=== PATIENT | male | born 1975 | race Caucasian/White ===

== ENCOUNTER 2022-10-28 10:57 | Inpatient (IN) | payer BC ==
[~2022-10-28] VITALS: Ht 187.9 cm; Wt 106.0 kg
[2022-10-28] MEDS ORDERED: CALCIUM CARBONATE 500 MG CHEW TABLET PO PRN (11:30)
[2022-10-28] MEDS ORDERED: MELATONIN 3 MG TABLET PO PRN (11:30)
[2022-10-28] MEDS ORDERED: morphine INJ 4 MG/ML 1 ML (VIAL/SYRINGE) IV PRN (11:30)
[2022-10-28] MEDS ORDERED: ACETAMINOPHEN 325 MG TABLET PO PRN (11:30)
[2022-10-28] MEDS ORDERED: ANTACID SUSPENSION 30 ML UDC PO PRN (11:30)
[2022-10-28] MEDS ORDERED: MILK OF MAGNESIA 400 MG/5 ML 30 ML UDC PO PRN (11:30)
[2022-10-28] MEDS ORDERED: NS IV 500 ML 500 ML IV PRN (11:30)
[2022-10-28] MEDS ORDERED: oxyCODONE IMMEDIATE RELEASE 5 MG TABLET PO PRN (11:30)
[2022-10-28] MEDS ORDERED: ONDANSETRON 4 MG ORAL DISSOLVE TABLET PO PRN (11:30)
[2022-10-28] MEDS ORDERED: LACTULOSE SYRUP 10GM/15ML 30ML UDC PO PRN (11:30)
[2022-10-28] MEDS ORDERED: ONDANSETRON INJECTION 4 MG/2 ML (SDV) IV PRN (11:30)
[2022-10-28] MEDS ORDERED: diphenhydrAMINE 25 MG TABLET PO PRN (11:30)
[2022-10-28] MEDS ORDERED: BISACODYL 10 MG SUPPOSITORY PR PRN (11:30)
[2022-10-28] MEDS ORDERED: diphenhydrAMINE INJ 50 MG/ML VIAL IVP PRN (11:30)
[2022-10-28] MEDS ORDERED: ALBU18HF2 INH (13:49)
[2022-10-28] MEDS ORDERED: LORA10TA7 PO (13:49)
--- NOTE | 2022-10-28 14:49 | Progress Note ---
SUSANA RIDLEY 10/28/22 1448: Subjective Date Seen by a Provider: Oct 28, 2022 Subjective/Events-last exam Miguel Ángel Whiting is a 47 year old male who came into the hospital today to get lab work and imaging done. He has recently begun having shortness of breath and friday went to his outpatient provider and was prescribed an albuterol inhaler. Over the weekend he continued to be short of breath so he had labs, an EKG, and xray ordered. He came into today to do these when he was found to have afib with RVR. He denies symptoms of chest pain or palpitations and denies ongoing shortness of breath. He denies personal history of heart disease, stroke, drug use, hypertension, and diabetes. He admits to snoring when he sleeps. He does admit to a family history of heart disease in several family members. Review of Systems Pulmonary: No Dyspnea Cardiovascular: No: Chest Pain, Palpitations, Edema Negative except as mentioned in HPI. Objective Exam Last Set of Vital Signs Vital Signs Date Time Temp Pulse Resp B/P (MAP) Pulse Ox O2 Delivery O2 Flow Rate FiO2 10/28/22 14:30 82 29 120/96 (104) 93 Room Air Capillary Refill : General: Alert, Cooperative, No Acute Distress HEENT: Atraumatic Lungs: Clear to Auscultation, Normal Air Movement Heart: Other (tachycardic, irregularly irregular rhythm) Extremities: No Edema, Normal Pulses Neuro: Normal Speech Psych/Mental Status: Mental Status NL, Mood NL Assessment/Plan Assessment/Plan Assess & Plan/Chief Complaint Assessment and Plan -Atrial fibrillation with RVR > Order CMP for electrolyte levels (K, Mg) > Transthoracic echo to assess LA size, thrombus formation, LV function, valvular dysfunction > Continue rate control with diltiazem > If rate control with CCB is not sufficient consider cardioversion > Continue anticoagulation with apixaban > Repeat EKG > [id number] score of 0 LEIDY CANNON DO 10/29/22 0455: Subjective Time Seen by a Provider: 18:00 Supervisory-Addendum Brief Verification & Attestation Participated in pt care: history, MDM, physical Personally performed: exam, history, MDM, supervision of care Care discussed with: Medical Student Procedures: n/a Results interpretation: Verified all documentation Verification and Attestation of Medical Student E/M Service A medical student performed and documented this service in my presence. I reviewed and verified all information documented by the medical student and made modifications to such information, when appropriate. I personally performed the physical exam and medical decision making. Leidy Cannon, Oct 29, 2022,04:54 SUSANA RIDLEY Oct 28, 2022 14:48 LEIDY CANNON DO Oct 29, 2022 04:55
[2022-10-28] MEDS: NS IV 1000 ML 1,000 ML IV SCH (15:30)
[2022-10-28] MEDS: dilTIAZem DRIP PRE-MIX 125 ML IV SCH (15:30)
--- NOTE | 2022-10-28 17:27 | Consultation-Cardiology ---
HPI-Cardiology Cardiology Consultation Date of Consultation 10/28/22 Date of Admission Time Seen by Provider: 17:23 Indication: Atrial fibrillation HPI 47-year-old gentleman with no significant past medical history starting to have increasing dyspnea for the past week, seen by Dr. Norton, started the work-up, he was seen in the emergency room with atrial fibrillation rapid ventricular response, transferred over with persistent tachycardia. On my evaluation he was feeling slightly better, still anxious. Denied any chest pain. No syncope or near syncopal episodes. No claudications. Home Medications & Allergies Allergies: Coded Allergies: No Known Drug Allergies (Unverified , 02/16/15) Home Medication List Reviewed: Yes Did not take any medication at home KPL-Vbgnys-Pnhwtt Hx Patient Social History Marital Status: Employed/Student: employed Smoking Status: Never a Smoker Alcohol Use?: Yes Past Medical History Discussed below Family Medical History Significant Family History: No Pertinent Family Hx Review of Systems-General Review of Systems Constitutional: no symptoms reported, see HPI EENTM: see HPI, no symptoms reported Respiratory: see HPI; No cough; dyspnea on exertion; No hemoptysis, No orthopnea, No phlegm, No short of breath, No stridor, No wheezing, No other Cardiovascular: see HPI Gastrointestinal: no symptoms reported, see HPI Genitourinary: no symptoms reported, see HPI Musculoskeletal: no symptoms reported, see HPI Skin: no symptoms reported, see HPI Psychiatric/Neurological: No Symptoms Reported, See HPI Physical Exam Physical Exam Vital Signs Vital Signs - First Documented 10/28/22 10/28/22 12:45 13:45 Pulse 104 Resp 29 B/P (MAP) 106/90 (95) Pulse Ox 99 O2 Delivery Room Air Capillary Refill : Height, Weight, BMI Height: '" Weight: lbs. oz. kg; 30.13 BMI Method: General Appearance: No Apparent Distress, WD/WN Eyes: Bilateral Eye Normal Inspection, Bilateral Eye PERRL, Bilateral Eye EOMI HEENT: PERRL/EOMI, TMs Normal, Normal ENT Inspection, Pharynx Normal, Moist Mucous Membranes Neck: Full Range of Motion, Normal Inspection, Non Tender, Supple, Carotid Bruit Respiratory: Chest Non Tender, Normal Breath Sounds, No Accessory Muscle Use, No Respiratory Distress Cardiovascular: No Edema, No Gallop, No JVD, No Murmur, Normal Peripheral Pulses, Systolic Murmur, Irregularly Irregular, Tachycardia Gastrointestinal: Normal Bowel Sounds, No Organomegaly, No Pulsatile Mass, Non Tender, Soft Back: Normal Inspection, No CVA Tenderness, No Vertebral Tenderness Extremity: Normal Capillary Refill, Normal Inspection, Normal Range of Motion, Non Tender, No Calf Tenderness, No Pedal Edema Neurologic/Psychiatric: Alert, Oriented x3, No Motor/Sensory Deficits, Normal Mood/Affect Skin: Normal Color, Warm/Dry Lymphatic: No Adenopathy A/P-Cardiology Admission Diagnosis Atrial fibrillation Tachycardia Congestive heart failure acute left ventricular systolic dysfunction Hypertension Assessment/Plan Atrial fibrillation with rapid ventricular response Unknown etiology Started on Cardizem drip, still tachycardic I will add digoxin and metoprolol Currently on Lovenox Planning for WILNER and electrical cardioversion if he did not convert on his own. Congestive heart failure, acute left ventricular systolic dysfunction 2D echo was done on October 28, 2022 with dilated left ventricle diffuse hypokinesia with ejection fraction 40 to 45%, biatrial enlargement, pulmonary hypertension with PA pressure 45 to 50 mmHg Underlying etiology is unknown probably due to atrial fibrillation Adding beta-blockers and continue on Cardizem for now and monitor I am planning to add losartan or Entresto depends on his blood pressure in addition to Jardiance once clinically stable CHADVASC score 2, starting Eliquis 5 mg twice daily after the cardioversion Hypertension, monitor blood pressure while on current medication Mild to moderate consumption of alcohol, educated on avoiding alcohol Pulmonary hypertension, PA pressure 45 to 50 mmHg, unknown etiology Questionable underlying sleep apnea DARCIE ANGELO MD Oct 28, 2022 17:27
[2022-10-28] MEDS ORDERED: meTOprolol INJECTION 5 MG/5 ML VIAL IV NR (17:30)
[2022-10-28] MEDS ORDERED: DIGOXIN INJECTION 0.25 MG/ML 2 ML AMPULE IV NR ×2 (17:30→23:00)
[2022-10-28] MEDS: DOCUSATE SODIUM 100 MG CAPSULE PO SCH (19:26)
[2022-10-28] MEDS: SENNOSIDES 8.6 MG TABLET PO SCH (19:26)
[2022-10-28] MEDS: APIXABAN 5 MG TABLET PO SCH (20:56)
[2022-10-28] MEDS: meTOprolol TARTRATE (IR) 25 MG TABLET PO SCH (20:56)
[2022-10-28] MEDS ORDERED: ALPRAZolam 0.5 MG TABLET PO PRN (21:15)
[2022-10-28] MEDS ORDERED: RT-ALBUTEROL SULF 2.5 MG/3 ML PRE-MIX VIAL INH PRN (21:15)
[2022-10-29] MEDS: dilTIAZem DRIP PRE-MIX 125 ML IV SCH (00:47)
[2022-10-29 04:31] LABS: BASOPHILS % (AUTO) 1 % (0-10); EOSINOPHILS # (AUTO) 0.1 10^3/uL (0.0-0.3); EOSINOPHILS % (AUTO) 1 % (0-10); HEMATOCRIT 41 % (40-54); HEMOGLOBIN 13.2 g/dL (13.3-17.7); LYMPHOCYTES % (AUTO) 28 % (12-44); MEAN CORPUSCULAR HEMOGLOBIN 30 pg (25-34); MEAN CORPUSCULAR HGB CONC 33 g/dL (32-36); MEAN CORPUSCULAR VOLUME 91 fL (80-99); MEAN PLATELET VOLUME 10.3 fL (9.0-12.2); MONOCYTES # (AUTO) 0.7 10^3/uL (0.0-1.0); MONOCYTES % (AUTO) 10 % (0-12); NEUTROPHILS # (AUTO) 4.5 10^3/uL (1.8-7.8); NEUTROPHILS % (AUTO) 61 % (42-75); PLATELET COUNT 196 10^3/uL (130-400); WHITE BLOOD COUNT 7.4 10^3/uL (4.3-11.0)
[2022-10-29 04:42] LABS: ALBUMIN 3.6 GM/DL (3.2-4.5); POTASSIUM 4.2 MMOL/L (3.6-5.0)
[2022-10-29 04:43] LABS: CALCIUM 8.4 MG/DL (8.5-10.1)
[2022-10-29 04:44] LABS: TOTAL PROTEIN 5.8 GM/DL (6.4-8.2)
[2022-10-29 04:46] LABS: BILIRUBIN,TOTAL 0.7 MG/DL (0.1-1.0)
[2022-10-29 04:47] LABS: PHOSPHORUS 3.6 MG/DL (2.3-4.7)
[2022-10-29 04:48] LABS: CREATININE SERUM 0.95 MG/DL (0.60-1.30)
[2022-10-29 04:51] LABS: MAGNESIUM 1.9 MG/DL (1.6-2.4)
--- NOTE | 2022-10-29 04:59 | History & Physical ---
History of Present Illness HPI/Chief Complaint Late entry of H&P: student mistakenly created progress note instead of H&P. Patient was seen 10/28/22 CC: New on set AF RVR HPI: This is a 47yoWM clinic patient of Dr Norton who has essentially no PMH and does not smoke or drink etoh who presented from [facility] for higher level of care due to new onset AF RVR. Cardizem drip initiated and OAC and Dr Love plans to perform HAMLET and cardiovert tomorrow. No sleep study performed in the past and I recommended that after DC. 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 Source: patient, family, RN/MD, old records Exam Limitations: no limitations Date Seen 10/29/22 Time Seen by a Provider: 19:00 Attending Physician Freedom Luciano MD PCP Admitting Physician: Leidy Cannon DO Attending Physician: Leidy Cannon DO Referring Physician Date of Admission Oct 28, 2022 at 12:40 Home Medications & Allergies Home Medications Reviewed patient Home Medication Reconciliation performed by pharmacy medication reconciliations unit technician and/or nursing. Patients Allergies have been reviewed. Allergies Allergies Coded Allergies No Known Drug Allergies (Fzwjehijjc29/10/15) Past Vdvvyyo-Uscggm-Qczxgn Hx Past Med/Social Hx: Reviewed Nursing Past Med/Soc Hx, Reviewed and Corrections made Patient Social History Marrital Status: Employed/Student: employed Smoking Status: Never a Smoker Past Medical History Cardiac: Atrial Fibrillation (10/28/22) Family History No Pertinent Family Hx Review of Systems Constitutional: see HPI Respiratory: dyspnea on exertion, short of breath Cardiovascular: palpitations Physical Exam Physical Exam Vital Signs Vital Signs - First Documented 10/28/22 10/28/22 10/28/22 10/28/22 12:45 13:45 19:25 21:54 Temp 36.6 Pulse 104 Resp 29 B/P (MAP) 106/90 (95) Pulse Ox 99 O2 Delivery Room Air FiO2 21 Capillary Refill : Less Than 3 Seconds Height, Weight, BMI Height: '" Weight: lbs. oz. kg; 30.13 BMI Method: General Appearance: No Apparent Distress, WD/WN Eyes: Bilateral Eye Normal Inspection, Bilateral Eye PERRL, Bilateral Eye EOMI HEENT: PERRL/EOMI, TMs Normal, Normal ENT Inspection, Pharynx Normal, Moist Mucous Membranes Neck: Full Range of Motion, Normal Inspection, Non Tender, Supple, Carotid B ruit Respiratory: Chest Non Tender, Normal Breath Sounds, No Accessory Muscle Use, No Respiratory Distress Cardiovascular: No Edema, No Gallop, No JVD, No Murmur, Normal Peripheral Pulses, Systolic Murmur, Irregularly Irregular, Tachycardia Gastrointestinal: Normal Bowel Sounds, No Organomegaly, No Pulsatile Mass, Non Tender, Soft Back: Normal Inspection, No CVA Tenderness, No Vertebral Tenderness Extremity: Normal Capillary Refill, Normal Inspection, Normal Range of Motion, Non Tender, No Calf Tenderness, No Pedal Edema Neurologic/Psychiatric: Alert, Oriented x3, No Motor/Sensory Deficits, Normal Mood/Affect Skin: Normal Color, Warm/Dry Lymphatic: No Adenopathy Results Results/Procedures Labs Laboratory Tests 10/29/22 03:33 Patient resulted labs reviewed. Assessment/Plan Admission Diagnosis Assessment: New onset AF RVR Suspected sleep study Plan: Cardizem drip Cardioversion after HAMLET tomorrow OAC Admission Status: Inpatient Order (span 2 midnights) Reason for Inpatient Admission: hamlet af rvr LEIDY CANNON DO Oct 29, 2022 04:59
[2022-10-29] MEDS: NS IV 1000 ML 1,000 ML IV SCH ×2 (05:12→20:42)
[2022-10-29] MEDS: POTASSIUM CHLORIDE 20 MEQ TABLET PO SCH (05:13)
[2022-10-29] MEDS: POTASSIUM CL 10MEQ/50ML IVPB 50 ML IV SCH (05:13)
[2022-10-29] MEDS: MAGNESIUM 1 GM/100 ML IVPB 100 ML IV SCH ×3 (05:14→05:37)
[2022-10-29] MEDS ORDERED: LIDOCAINE 2% VISCOUS 15 ML UDC ONE (07:17)
[2022-10-29] MEDS ORDERED: MIDAZOLAM INJ 2 MG/2 ML VIAL ONE (07:41)
--- NOTE | 2022-10-29 07:54 | Cardiology Progress Note ---
Subjective Date Seen by Provider: Oct 29, 2022 Time Seen by Provider: 07:53 Subjective/Events-last exam Patient was seen at bedside sitting comfortably. No new complain Review of Systems General: No Chills, No Night Sweats, No Fatigue, No Malaise, No Appetite, No Other HEENT: No Head Aches, No Visual Changes, No Eye Pain, No Ear Pain, No Dysphasia, No Sinus Congestion, No Post Nasal Drip, No Sore Throat, No Other Pulmonary: No Dyspnea, No Cough, No Pleuritic Chest Pain, No Other Cardiovascular: No: Chest Pain, Palpitations, Orthopnea, Paroxysmal Noc. Dyspnea, Edema, Lt Headedness, Other Objective-Cardiology Exam Last Set of Vital Signs Vital Signs 10/28/22 10/28/22 10/29/22 10/29/22 10/29/22 21:54 22:45 05:00 06:00 07:12 Temp 36.5 Pulse 75 Resp 20 B/P (MAP) 105/69 (81) Pulse Ox 90 O2 Delivery Room Air FiO2 21 I&O Intake and Output 10/29/22 00:00 Intake Total 1600 ml Output Total 850 ml Balance 750 ml Intake Oral 1600 ml Output Urine Total 850 ml Daily Weight Change No General: Alert, Cooperative, No Acute Distress HEENT: Atraumatic Neck: Supple, No JVD Lungs: Clear to Auscultation, Normal Air Movement Heart: Normal S1, Normal S2, Other (tachycardic, irregularly irregular rhythm) Abdomen: Normal Bowel Sounds Extremities: No Clubbing, No Cyanosis, No Edema, Normal Pulses Skin: No Rashes, No Breakdown Neuro: Normal Speech Psych/Mental Status: Mental Status NL, Mood NL Results Lab Laboratory Tests 10/29/22 03:33 A/P-Cardiology Admission Diagnosis Atrial fibrillation Tachycardia Congestive heart failure acute left ventricular systolic dysfunction Hypertension Assessment/Plan Atrial fibrillation with rapid ventricular response Unknown etiology Currently on Cardizem drip, had multiple episodes of bradycardia but did not convert overnight Plan to proceed with WILNER and electrical cardioversion Congestive heart failure, acute left ventricular systolic dysfunction 2D echo was done on October 28, 2022 with dilated left ventricle diffuse hypokinesia with ejection fraction 40 to 45%, biatrial enlargement, pulmonary hypertension with PA pressure 45 to 50 mmHg Underlying etiology is unknown probably due to atrial fibrillation Adding beta-blockers and continue on Cardizem for now and monitor I am planning to add losartan or Entresto depends on his blood pressure in addition to Jardiance once clinically stable CHADVASC score 2, starting Eliquis 5 mg twice daily after the cardioversion Hypertension, monitor blood pressure while on current medication Mild to moderate consumption of alcohol, educated on avoiding alcohol Pulmonary hypertension, PA pressure 45 to 50 mmHg, unknown etiology Questionable underlying sleep apnea DARCIE ANGELO MD Oct 29, 2022 07:54
--- NOTE | 2022-10-29 07:55 | Cardiac Procedure Note-CS/ASA ---
Pre-Procedure Note Pre-Op Procedure Note Date of Available H&P: Oct 29, 2022 Date H&P Reviewed: Oct 29, 2022 Time H&P Reviewed: 07:54 History & Physical: H&P Reviewed, Patient Examed, No changes noted Pre-Operative Diagnosis: Atrial fibrillation Moderate Sedation PreProcedure Time 07:54 ASA Score 3 Airway Lungs Heart ASA score ASA 1: a normal healthy patient ASA 2: a patient with a mild systemic disease (mid diabetes, controlled hypertension, obesity ASA 3: a patient with a severe systemic disease that limits activity (angina, COPD, prior Myocardial infarction) ASA 4: a patient with an incapacitating disease that is a constant threat to life (CHF, renal failure) ASA 5: a moribund patient not expected to survive 24 hrs. (ruptured aneurysm) ASA 6: a declared brain- patient whose organs are being harvested. For emergent operations, add the letter E after the classification Mallampati Classification Grade 3 Sedation Plan Analgesia, Amnesia, Plan communicated to team members, Discussed options with patient/fam, Discussed risks with patient/fam The patient is an appropriate candidate to undergo the planned procedure, sedation, and anesthesia. The patient immediately re-assessed prior to indication. DARCIE ANGELO MD Oct 29, 2022 07:55
--- NOTE | 2022-10-29 08:08 | Cardioversion ---
Cardioversion PROCEDURE PHYSICIAN: Darcie Love DATE OF PROCEDURE: 10/29/22 DIRECT EXTERNAL ELECTRICAL CARDIOVERSION: Indications: Atrial Fibrillation with rapid ventricular rate Preoperative diagnoses: Atrial Fibrillation with rapid ventricular rate Postoperative diagnosis: Atrial fibrillation History: 47 years old gentleman admitted with atrial fibrillation rapid ventricular response, started on Cardizem drip and received digoxin, did not convert overnig ht, underwent WILNER showed no clot or thrombus, we decided to proceed with electrical cardioversion Anesthesia: By Anesthesia services Complications: None Specimen: None Contrast: 0 Flouroscopy: none Procedure Details: The patient was brought the medical lab technician after informed consent was taken, all the risks and complications were explained including the risk of stroke. Electrical cardioversion was carried out with anesthesia support with propofol. 200 joules of synchronized shock was delivered through external patches twice without success in terminating atrial fibrillation Conclusions: Failed 2 attempts for electrical cardioversion Patient will be loaded with amiodarone then will attempt again in the morning DARCIE LOVE MD Oct 29, 2022 08:08
[2022-10-29] MEDS ORDERED: LIDOCAINE 2% VISCOUS 15 ML UDC PO ONE (08:30)
[2022-10-29] MEDS ORDERED: AMIODARONE FOR BOLUS 150 MG in NS (IVPB) 100 ML 100 ML IV ONE (08:30)
[2022-10-29] MEDS ORDERED: proPOfol INJECTION 200 MG/20 ML VIAL IV ONE (08:40)
--- NOTE | 2022-10-29 08:47 | Diagnostic Imaging Report ---
EXAMINATION: Chest 1 view HISTORY: Pleural effusion COMPARISON: None available. FINDINGS: There is mild asymmetric right-sided edema. No pneumothorax. No pleural effusion. Heart is upper limits of normal in size. IMPRESSION: 1. Mild asymmetric right-sided edema. Dictated by: Dictated on workstation # [id number]
--- NOTE | 2022-10-29 08:48 | Anesthesia-General Post-Op ---
MAC Patient Condition Mental Status/LOC: Same as Preop Cardiovascular: Satisfactory Nausea/Vomiting: Absent Respiratory: Satisfactory Pain: Controlled Complications: Absent Post Op Complications Complications None Follow Up Care/Instructions Patient Instructions None needed. Anesthesiology Discharge Order Discharge Order Patient is doing well, no complaints, stable vital signs, no apparent adverse anesthesia problems. No complications reported per nursing. ALISA WOOTEN CRNA Oct 29, 2022 08:48
[2022-10-29] MEDS: AMIODARONE FOR DRIP 450 MG in NORMAL SALINE (EXCEL) 250 ML 250 ML IV SCH ×2 (09:00→16:12)
[2022-10-29] MEDS: DOCUSATE SODIUM 100 MG CAPSULE PO SCH ×2 (09:00→20:44)
[2022-10-29] MEDS: SENNOSIDES 8.6 MG TABLET PO SCH ×2 (09:00→20:44)
[2022-10-29 09:01] VITALS: BP 93/86
[2022-10-29] MEDS: APIXABAN 5 MG TABLET PO SCH ×2 (09:30→20:42)
[2022-10-29] MEDS: SACUBITRIL/VALSARTAN 24/26 MG TABLET PO SCH ×2 (09:30→20:42)
[2022-10-29] MEDS: meTOprolol TARTRATE (IR) 25 MG TABLET PO SCH ×2 (09:30→20:42)
[2022-10-29] MEDS: LORATADINE 10 MG TABLET PO SCH (09:30)
[2022-10-29] MEDS: EMPAGLIFLOZIN 10 MG TABLET PO SCH (09:31)
--- NOTE | 2022-10-29 10:37 | Tele-ICU Progress Note ---
Subjective Date Seen by a Provider: Oct 29, 2022 Time Seen by a Provider: 10:37 Subjective/Events-last exam (Tele-ICU Physician , consultation as per request of PCP Service provided via interactive audio and video telecommunications E-CARE system to a patient admitted to ICU bed in [facility]. Available chart/ vitals / labs / Images reviewed H&P is from ER notes Patient's information available about PMH, Shx, Fhx allergy reviewed inEMR. ROS as per chart and RN report Now in ICU, hemodynamically stable Video assessment done using teleICU camera, rest of exam as per RN Discussed with RN. Hospital course: (10/28) 47M Admitted as transfer from [place] ER for afib RVR-digoxin/cardizem (10/29) Did not convert overnight. WILNER shoed no clot or thrombus. Cardioversion done-unsuccessful x2. Lopressor given. Plan for amio drip A/P Afin RVR - new Unknown etiology -on Cardizem drip, - 10/29 WINLER no thrombus, EF 45 % -s/p atterempted Cardioversion -unsuccessful x2. - amio drip as per cards ordered - ac -Lovenox Acute left ventricular systolic dysfunction - as per cards Pulmonary hypertension, P A pressure 45 to 50 mmHg on previous echo - unknown etiology, needs f/up and additional w/up - NEED CTA TO R?O CHRONIC VS ACUTE PE ? - as per bedside MD VTE Prophylaxis: matthew Stress Ulcer Prophylaxis: na Plans in collaboration with bedside consultants and IM MDs. Discussed with RN to reach out if any questions or concerns A total of 22 minutes of critical care time was devoted to this patient today, required to treat and/or prevent further deterioration of critical care condition ( as above ) . I am remotely monitoring this patient from another state. I am unable to do the bedside exam, and history/physical and pertinent information is taken from other notes in the computer and bedside staff. . Sepsis Event Evaluation Height, Weight, BMI Height: '" Weight: lbs. oz. kg; 30.47 BMI Method: Exam Exam Patient acknowledged, consented, and participated in this virtual visit which was conducted using real time audio/video Vital Signs Date Time Temp Pulse Resp B/P (MAP) Pulse Ox O2 Delivery O2 Flow Rate FiO2 10/29/22 10:00 74 37 137/123 (128) 96 Room Air 10/29/22 09:45 73 39 138/122 (127) 93 Room Air 10/29/22 09:30 80 20 132/117 (122) 96 Room Air 10/29/22 09:15 79 12 134/105 (115) 92 Room Air 10/29/22 09:01 78 93/86 10/29/22 09:00 82 12 131/107 (115) 93 Room Air 10/29/22 08:30 78 15 93/86 (88) 93 Room Air 10/29/22 08:20 73 37 121/84 (96) 94 Room Air 10/29/22 08:15 84 24 122/87 (99) 98 Room Air 10/29/22 08:10 68 16 127/76 (93) 99 Room Air 10/29/22 08:05 73 31 114/83 (93) 99 Room Air 10/29/22 08:00 87 19 127/76 (93) 100 Room Air 10/29/22 08:00 36.3 10/29/22 07:12 75 10/29/22 07:00 77 21 127/89 (102) 93 Room Air 10/29/22 06:00 76 105/69 (81) 90 Room Air 10/29/22 05:00 65 20 120/96 (104) 89 Room Air 10/29/22 04:00 69 26 127/89 (102) 89 Room Air 10/29/22 03:00 61 111/82 (92) 92 Room Air 10/29/22 03:00 91 Room Air 10/29/22 02:00 60 105/79 (88) 89 Room Air 10/29/22 01:00 40 10/29/22 01:00 67 110/85 (93) 92 Room Air 10/29/22 00:47 66 111/84 10/29/22 00:00 72 35 113/90 (98) 94 Room Air 10/28/22 23:15 65 111/87 (95) 89 Room Air 10/28/22 23:00 96 Room Air 10/28/22 22:45 36.5 60 22 106/89 (95) 95 Room Air 10/28/22 22:00 68 120/86 (97) 93 Room Air 10/28/22 21:54 95 Room Air 21 10/28/22 21:15 74 23 127/88 (101) 94 Room Air 10/28/22 20:00 79 39 126/96 (106) 95 Room Air 10/28/22 19:39 36.6 10/28/22 19:33 10/28/22 19:25 36.6 10/28/22 19:20 95 Room Air 10/28/22 19:00 65 20 111/89 (96) 95 Room Air 10/28/22 19:00 75 10/28/22 18:00 101 16 120/93 (102) 94 Room Air 10/28/22 17:00 111 31 133/107 (116) 95 Room Air 10/28/22 16:00 96 18 112/92 (99) 91 Room Air 10/28/22 15:46 98 Room Air 10/28/22 15:30 110 10/28/22 15:00 94 11 124/91 (102) 95 Room Air 10/28/22 14:45 99 44 124/97 (106) 95 Room Air 10/28/22 14:30 82 29 120/96 (104) 93 Room Air 10/28/22 14:15 109 22 111/95 (100) 94 Room Air 10/28/22 14:00 98 15 109/94 (99) 91 Room Air 10/28/22 13:45 94 29 115/94 (101) 93 Room Air 10/28/22 13:30 104 113/93 (100) 90 Room Air 10/28/22 13:15 97 118/100 (106) 96 Room Air 10/28/22 13:00 102 112/105 (107) 91 Room Air 10/28/22 12:58 98 Room Air 10/28/22 12:45 89 106/90 (95) 99 Room Air 10/28/22 12:45 104 I & O 10/29/22 06:59 Intake Total 3125 ml Output Total 3000 ml Balance 125 ml Height & Weight Height: '" Weight: lbs. oz. kg; 30.47 BMI Method: General Appearance: No Apparent Distress, WD/WN HEENT: PERRL/EOMI, TMs Normal, Normal ENT Inspection, Pharynx Normal, Moist Mucous Membranes Neck: Full Range of Motion, Normal Inspection, Non Tender, Supple, Carotid Bruit Respiratory: Chest Non Tender, Normal Breath Sounds, No Accessory Muscle Use, No Respiratory Distress Cardiovascular: No Edema, No Gallop, No JVD, No Murmur, Normal Peripheral Pulses, Systolic Murmur, Irregularly Irregular, Tachycardia Capillary Refill: Less Than 3 Seconds Extremity: Normal Capillary Refill, Normal Inspection, Normal Range of Motion, Non Tender, No Calf Tenderness, No Pedal Edema Neurologic/Psychiatric: Alert, Oriented x3, No Motor/Sensory Deficits, Normal Mood/Affect Skin: Normal Color, Warm/Dry Lymphatic: No Adenopathy Results Lab Laboratory Tests 10/29/22 03:33 Assessment/Plan Assessment/Plan 1 SHANKAR SMITH MD Oct 29, 2022 10:37
--- NOTE | 2022-10-29 12:10 | Progress Note - Hospitalist ---
SUSANA RIDLEY 10/29/22 1210: Subjective HPI/CC On Admission Late entry of H&P: student mistakenly created progress note instead of H&P. Patient was seen 10/28/22 CC: New on set AF RVR HPI: This is a 47yoWM clinic patient of Dr Norton who has essentially no PMH and does not smoke or drink etoh who presented from [facility] for higher level of care due to new onset AF RVR. Cardizem drip initiated and OAC and Dr Love plans to perform WILNER and cardiovert tomorrow. No sleep study performed in the past and I recommended that after DC. 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 Subjective/Events-last exam Miguel Ángel Whiting was seen this morning and appeared to be doing well. He said he feels good. Denies chest pain, shortness of breath, palpitations Review of Systems General: No Chills, No Night Sweats, No Fatigue, No Malaise, No Appetite, No Other HEENT: No Head Aches, No Visual Changes, No Eye Pain, No Ear Pain, No Dysphasia, No Sinus Congestion, No Post Nasal Drip, No Sore Throat, No Other Pulmonary: No Dyspnea, No Pleuritic Chest Pain Cardiovascular: No: Chest Pain, Palpitations Gastrointestinal: No: Nausea, Vomiting, Abdominal Pain, Diarrhea, Constipation, Melena, Hematochezia, Other Genitourinary: No Dysuria, No Frequency, No Incontinence, No Hematuria, No Retention, No Other Musculoskeletal: No: other, neck pain, shoulder pain, arm pain, back pain, hand pain, leg pain, foot pain Neurological: No: Weakness, Numbness, Incoordination, Change in speech, Confusion, Seizures, Other Negative except as mentioned in HPI. Objective Exam Vital Signs Vital Signs Date Time Temp Pulse Resp B/P (MAP) Pulse Ox O2 Delivery O2 Flow Rate FiO2 10/29/22 11:00 74 9 124/103 (110) 97 Room Air 10/29/22 08:00 36.3 10/28/22 21:54 21 Capillary Refill : Less Than 3 Seconds General Appearance: No Apparent Distress, WD/WN Neck: Normal Inspection Respiratory: Lungs Clear, Normal Breath Sounds; No Respiratory Distress Cardiovascular: Regular Rate, Rhythm, No Murmur, Normal Peripheral Pulses Results/Procedures Lab Laboratory Tests 10/29/22 03:33 Patient resulted labs reviewed. Assessment/Plan Assessment and Plan Assess & Plan/Chief Complaint Assessment and Plan -Atrial fibrillation with RVR > started on cardizem drip yesterday, was still slightly tachycardic > cardiology added digoxin and metoprolol > tachycardia resolved today with HR 78 > 2D echo yesterday showed EF of 40-45% with dilated LV, biatrial enlargement, pulmonary HTN with PA pressure 45-50 mmHg (questionable sleep apnea) > WILNER showed no thrombus formation > cardioversion x2 was unsuccessful > lopressor given and plan amiodarone drip > consider d/c cardizem and continue metoprolol since HR is controlled but patient BP is 93/86 this morning 10/29/22 1318: SUSANA RIDLEY Oct 29, 2022 12:10 ,MarOct 29, 2022 13:18
--- NOTE | 2022-10-29 13:37 | Progress Note ---
SUSANA RIDLEY F 10/29/22 1337: Subjective Subjective/Events-last exam Mr. Whiting was seen this morning and he appears to be doing well. He said he feels good. He denies chest pain, shortness of breath, palpitations. Review of Systems General: No Chills, No Night Sweats, No Fatigue, No Malaise, No Appetite, No Other HEENT: No Head Aches, No Visual Changes, No Eye Pain, No Ear Pain, No Dysphasia, No Sinus Congestion, No Post Nasal Drip, No Sore Throat, No Other Pulmonary: No Dyspnea, No Cough, No Pleuritic Chest Pain Cardiovascular: No: Chest Pain, Palpitations Negative except as mentioned in HPI. Objective Exam Last Set of Vital Signs Vital Signs Date Time Temp Pulse Resp B/P (MAP) Pulse Ox O2 Delivery O2 Flow Rate FiO2 10/29/22 12:43 63 10/29/22 12:00 20 97/85 (89) 90 Room Air 10/29/22 12:00 36.2 10/28/22 21:54 21 Capillary Refill : Less Than 3 Seconds I&O Intake and Output 10/29/22 00:00 Intake Total 1600 ml Output Total 850 ml Balance 750 ml Intake Oral 1600 ml Output Urine Total 850 ml Daily Weight Change No General: Alert Neck: Supple Lungs: Clear to Auscultation, Normal Air Movement Heart: Regular Rate, Normal S1, Normal S2, No Murmurs Results Lab Laboratory Tests 10/29/22 03:33: White Blood Count 7.4, Red Blood Count 4.43, Hemoglobin 13.2L, Hematocrit 41, Mean Corpuscular Volume 91, Mean Corpuscular Hemoglobin 30, Mean Corpuscular Hemoglobin Concent 33, Red Cell Distribution Width 13.4, Platelet Count 196, Mean Platelet Volume 10.3, Immature Granulocyte % (Auto) 0, Neutrophils (%) (Auto) 61, Lymphocytes (%) (Auto) 28, Monocytes (%) (Auto) 10, Eosinophils (%) (Auto) 1, Basophils (%) (Auto) 1, Neutrophils # (Auto) 4.5, Lymphocytes # (Auto) 2.0, Monocytes # (Auto) 0.7, Eosinophils # (Auto) 0.1, Basophils # (Auto) 0.0, Immature Granulocyte # (Auto) 0.0, Sodium Level 141, Potassium Level 4.2, Chloride Level 108H, Carbon Dioxide Level 25, Anion Gap 8, Blood Urea Nitrogen 15, Creatinine 0.95, Estimat Glomerular Filtration Rate 100, BUN/Creatinine Ratio 16, Glucose Level 96, Calcium Level 8.4L, Corrected Calcium 8.7, Phosphorus Level 3.6, Magnesium Level 1.9, Total Bilirubin 0.7, Aspartate Amino Transf (AST/SGOT) 22, Alanine Aminotransferase (ALT/SGPT) 40, Alkaline Phosphatase 61, Total Protein 5.8L, Albumin 3.6, Triglycerides Level 107, Cholesterol Level 148, LDL Cholesterol Direct 114, VLDL Cholesterol 21, HDL Cholesterol 36L, Thyroid Stimulating Hormone (TSH) 0.81 Microbiology 10/28/22 MRSA Screen - Final, Complete MRSA not isolated Assessment/Plan Assessment/Plan Assess & Plan/Chief Complaint Assessment and Plan -Atrial fibrillation with RVR > Cardizem drip started yesterday but was still slightly tachycardic > Cardiology added digoxin and metoprolol > HR under control at 78 this morning > had 2D echo yesterday that showed EF of 40-45% with dilated LV, biatrial enlargement, pulmonary HTN with PA pressure 45-50 mmHg (likely hx of sleep apnea) > WILNER showed no signs of thrombus formation > cardioversion x2 unsuccessful > lopressor given, amiodarone drip planned > Continue anticoagulation > Consider possibly d/c cardizem drip due to normalized HR and hypotension LEIDY CANNON DO 10/29/22 1937: Supervisory-Addendum Brief Verification & Attestation Participated in pt care: history, MDM, physical Personally performed: exam, history, MDM, supervision of care Care discussed with: Medical Student Procedures: n/a Results interpretation: Verified all documentation Verification and Attestation of Medical Student E/M Service A medical student performed and documented this service in my presence. I reviewed and verified all information documented by the medical student and made modifications to such information, when appropriate. I personally performed the physical exam and medical decision making. Leidy Cannon, Oct 29, 2022,19:37 SUSANA RIDLEY Oct 29, 2022 13:37 LEIDY CANNON DO Oct 29, 2022 19:37
[2022-10-30 05:08] LABS: BASOPHILS % (AUTO) 1 % (0-10); EOSINOPHILS # (AUTO) 0.1 10^3/uL (0.0-0.3); EOSINOPHILS % (AUTO) 1 % (0-10); HEMATOCRIT 44 % (40-54); HEMOGLOBIN 14.4 g/dL (13.3-17.7); LYMPHOCYTES % (AUTO) 24 % (12-44); MEAN CORPUSCULAR HEMOGLOBIN 30 pg (25-34); MEAN CORPUSCULAR HGB CONC 33 g/dL (32-36); MEAN CORPUSCULAR VOLUME 91 fL (80-99); MEAN PLATELET VOLUME 10.7 fL (9.0-12.2); MONOCYTES # (AUTO) 0.9 10^3/uL (0.0-1.0); MONOCYTES % (AUTO) 11 % (0-12); NEUTROPHILS # (AUTO) 5.2 10^3/uL (1.8-7.8); NEUTROPHILS % (AUTO) 64 % (42-75); PLATELET COUNT 180 10^3/uL (130-400); WHITE BLOOD COUNT 8.2 10^3/uL (4.3-11.0)
[2022-10-30 05:31] LABS: ALBUMIN 3.8 GM/DL (3.2-4.5); BILIRUBIN,TOTAL 0.7 MG/DL (0.1-1.0); CALCIUM 8.7 MG/DL (8.5-10.1); CREATININE SERUM 1.01 MG/DL (0.60-1.30); MAGNESIUM 2.1 MG/DL (1.6-2.4); PHOSPHORUS 3.7 MG/DL (2.3-4.7); TOTAL PROTEIN 6.4 GM/DL (6.4-8.2)
[2022-10-30] MEDS: POTASSIUM CHLORIDE 20 MEQ TABLET PO SCH (05:47)
[2022-10-30] MEDS: POTASSIUM CL 10MEQ/50ML IVPB 50 ML IV SCH (05:47)
[2022-10-30] MEDS: MAGNESIUM 1 GM/100 ML IVPB 100 ML IV SCH (05:47)
[2022-10-30] MEDS: AMIODARONE FOR DRIP 450 MG in NORMAL SALINE (EXCEL) 250 ML 250 ML IV SCH (07:59)
--- NOTE | 2022-10-30 08:26 | Cardioversion ---
Cardioversion PROCEDURE PHYSICIAN: Darcie Love DATE OF PROCEDURE: 10/30/22 DIRECT EXTERNAL ELECTRICAL CARDIOVERSION: Indications: Atrial Fibrillation with rapid ventricular rate Preoperative diagnoses: Atrial Fibrillation with rapid ventricular rate Postoperative diagnosis: Atrial fibrillation History: Patient underwent WILNER and cardioversion on October 29, 2022 which has failed and restoring sinus rhythm. I bolused him and loaded him with amiodarone. I d ecided to proceed with another attempt for cardioversion Anesthesia: By Anesthesia services Complications: None Specimen: None Contrast: 0 Flouroscopy: none Procedure Details: The patient was brought the chemical laboratory chief after informed consent was taken, all the risks and complications were explained including the risk of stroke. Electrical cardioversion was carried out with anesthesia support with propofol. 200 joules of synchronized shock was delivered through external patches which failed again and restoring sinus rhythm Conclusions: Failed 2 attempts for cardioversion after loading with amiodarone I am planning to continue with oral amiodarone and Cardizem, discharge the patient and follow-up as an outpatient and we can schedule another attempt for c ardioversion after full load in 1 month DARCIE LOVE MD Oct 30, 2022 08:26
[2022-10-30] MEDS ORDERED: proPOfol INJECTION 200 MG/20 ML VIAL IV ONE (08:28)
--- NOTE | 2022-10-30 08:28 | Cardiology Progress Note ---
Subjective Date Seen by Provider: Oct 30, 2022 Time Seen by Provider: 08:26 Subjective/Events-last exam Patient was laying down in bed, no new complaint Review of Systems General: No Chills, No Night Sweats, No Fatigue, No Malaise, No Appetite, No Other HEENT: No Head Aches, No Visual Changes, No Eye Pain, No Ear Pain, No Dysphasia, No Sinus Congestion, No Post Nasal Drip, No Sore Throat, No Other Pulmonary: No Dyspnea, No Cough, No Pleuritic Chest Pain, No Other Cardiovascular: No: Chest Pain, Palpitations, Orthopnea, Paroxysmal Noc. Dyspnea, Edema, Lt Headedness, Other Objective-Cardiology Exam Last Set of Vital Signs Vital Signs 10/28/22 10/30/22 10/30/22 10/30/22 21:54 04:00 06:00 07:15 Temp 36.4 Pulse 74 Resp 16 B/P (MAP) 113/80 (91) Pulse Ox 91 O2 Delivery Room Air FiO2 21 I&O Intake and Output 10/30/22 00:00 Intake Total 4225 ml Output Total 5525 ml Balance -1300 ml Intake Oral 2100 ml IV Total 2125 ml Output Urine Total 5525 ml # Voids 3 # Bowel Movements 1 General: Alert, Oriented X3, Cooperative HEENT: Atraumatic Neck: Supple Lungs: Clear to Auscultation, Normal Air Movement Heart: Regular Rate, Normal S1, Normal S2, No Murmurs Abdomen: Normal Bowel Sounds Extremities: No Clubbing, No Cyanosis, No Edema, Normal Pulses Skin: No Rashes, No Breakdown Neuro: Normal Speech Psych/Mental Status: Mental Status NL, Mood NL Results Lab Laboratory Tests 10/30/22 03:50 A/P-Cardiology Admission Diagnosis Atrial fibrillation Tachycardia Congestive heart failure acute left ventricular systolic dysfunction Hypertension Assessment/Plan Atrial fibrillation with rapid ventricular response Unknown etiology Failed attempt for cardioversion on October 29, 2022 and a second attempt on October 30, 2022 I will continue with oral amiodarone and Cardizem Planning for discharge home today and follow-up as an outpatient and proceed with another attempt after full load with oral amiodarone in 1 month Congestive heart failure, acute left ventricular systolic dysfunction 2D echo was done on October 28, 2022 with dilated left ventricle diffuse hypokinesia with ejection fraction 40 to 45%, biatrial enlargement, pulmonary hypertension with PA pressure 45 to 50 mmHg Underlying etiology is unknown probably due to atrial fibrillation Continue on beta-blockers and Entresto and Jardiance CHADVASC score 2, starting Eliquis 5 mg twice daily after the cardioversion Hypertension, monitor blood pressure while on current medication Mild to moderate consumption of alcohol, educated on avoiding alcohol Pulmonary hypertension, PA pressure 45 to 50 mmHg, unknown etiology Questionable underlying sleep apnea DARCIE ANGELO MD Oct 30, 2022 08:28
[2022-10-30] MEDS ORDERED: DILT-27 PO (08:31)
[2022-10-30] MEDS ORDERED: METO-333 PO (08:31)
[2022-10-30] MEDS ORDERED: APIX5TAB PO (08:31)
[2022-10-30] MEDS ORDERED: SACU1TAB2 PO (08:31)
[2022-10-30] MEDS ORDERED: EMPA10TA PO (08:31)
--- NOTE | 2022-10-30 08:32 | Anesthesia-General Post-Op ---
MAC Patient Condition Mental Status/LOC: Same as Preop Cardiovascular: Satisfactory Nausea/Vomiting: Absent Respiratory: Satisfactory Pain: Controlled Complications: Absent Post Op Complications Complications None Follow Up Care/Instructions Patient Instructions None needed. Anesthesiology Discharge Order Discharge Order Patient is doing well, no complaints, stable vital signs, no apparent adverse anesthesia problems. No complications reported per nursing. NEISHA BLEVINS CRNA Oct 30, 2022 08:32
[2022-10-30] MEDS ORDERED: AMIO200T65 PO (08:33)
[2022-10-30] MEDS ORDERED: dilTIAZem ER 120 MG CAPSULE PO SCH (09:00)
[2022-10-30] MEDS ORDERED: AMIODARONE 200 MG TABLET PO SCH (09:00)
[2022-10-30] MEDS: SENNOSIDES 8.6 MG TABLET PO SCH (10:08)
[2022-10-30] MEDS: DOCUSATE SODIUM 100 MG CAPSULE PO SCH (10:08)
[2022-10-30] MEDS: SACUBITRIL/VALSARTAN 24/26 MG TABLET PO SCH (10:09)
[2022-10-30] MEDS: meTOprolol TARTRATE (IR) 25 MG TABLET PO SCH (10:12)
[2022-10-30] MEDS: APIXABAN 5 MG TABLET PO SCH (10:12)
[2022-10-30] MEDS: EMPAGLIFLOZIN 10 MG TABLET PO SCH (10:14)
[2022-10-30] MEDS: LORATADINE 10 MG TABLET PO SCH (10:15)
--- NOTE | 2022-10-30 10:38 | Tele-ICU Progress Note ---
Subjective Date Seen by a Provider: Oct 30, 2022 Time Seen by a Provider: 10:38 Subjective/Events-last exam WILL SIGN OFF CONTINUE TO MONITOR PER USUAL TELE-ICU PROTOCOL WHILE LOCATED IN ICU Hospital course: (10/28) 47M Admitted as transfer from [place] [facility] for afib RVR-digoxin/cardizem (10/29) Did not convert overnight. WILNER shoed no clot or thrombus. Cardioversion done-unsuccessful x2. Lopressor given. Plan for amio drip (10-30) s/p Failed Cardioversiobn today - PO Amiodarone & Cardizem. A/P Afin RVR - new Unknown etiology -on Cardizem drip, - 10/29 WILNER no thrombus, EF 45 % -s/p atterempted Cardioversion -unsuccessful x2 days as per cards ordered - ac -Lovenox- to NOAC Acute left ventricular systolic dysfunction - as per cards Pulmonary hypertension, P A pressure 45 to 50 mmHg on previous echo - unknown etiology, needs f/up and additional w/up - NEED CTA TO R?O CHRONIC VS ACUTE PE ? - as per bedside MD VTE Prophylaxis: matthew Stress Ulcer Prophylaxis: na Plans in collaboration with bedside consultants and IM MDs. Discussed with RN to reach out if any questions or concerns A total of 5 minutes of critical care time was devoted to this patient today, required to treat and/or prevent further deterioration of critical care condition ( as above ) . I am remotely monitoring this patient from another state. I am unable to do the bedside exam, and history/physical and pertinent information is taken from other notes in the computer and bedside staff. . Sepsis Event Evaluation Height, Weight, BMI Height: '" Weight: lbs. oz. kg; 30.02 BMI Method: Exam Exam Patient acknowledged, consented, and participated in this virtual visit which was conducted using real time audio/video Vital Signs Date Time Temp Pulse Resp B/P (MAP) Pulse Ox O2 Delivery O2 Flow Rate FiO2 10/30/22 10:00 90 34 146/97 (113) 92 Room Air 10/30/22 09:15 79 23 115/94 (101) 94 Room Air 10/30/22 09:00 69 20 127/86 (100) 95 Room Air 10/30/22 08:45 71 14 133/100 (111) 100 Room Air 10/30/22 08:30 72 15 121/87 (98) 93 Room Air 10/30/22 08:25 68 13 124/94 (104) 97 Room Air 10/30/22 08:00 77 13 110/98 (102) 93 Room Air 10/30/22 07:15 74 10/30/22 07:00 75 24 143/101 (115) 96 Room Air 10/30/22 06:00 65 16 113/80 (91) 91 Room Air 10/30/22 05:00 60 12 135/92 (106) 98 Room Air 10/30/22 04:05 93 Room Air 10/30/22 04:00 36.4 78 28 126/93 (106) 92 Room Air 10/30/22 03:00 67 14 110/91 (97) 93 Room Air 10/30/22 02:00 65 13 108/85 (93) 90 Room Air 10/30/22 01:00 61 10/30/22 01:00 61 28 124/92 (103) 90 Room Air 10/30/22 00:05 92 Room Air 10/30/22 00:03 36.4 10/30/22 00:00 75 20 127/95 (106) 95 Room Air 10/29/22 23:00 73 17 119/97 (104) 93 Room Air 10/29/22 22:00 78 21 138/90 (106) 95 Room Air 10/29/22 21:45 80 21 143/97 (109) 96 Room Air 10/29/22 21:30 83 24 130/98 (107) 96 Room Air 10/29/22 21:15 72 25 130/94 (106) 96 Room Air 10/29/22 21:00 94 15 95 Room Air 10/29/22 20:45 82 22 135/98 (107) Room Air 10/29/22 20:30 68 19 125/96 (106) 94 Room Air 10/29/22 20:15 40 126/96 (106) 95 Room Air 10/29/22 20:05 88 Room Air 10/29/22 20:00 36.7 80 21 128/99 (111) 96 Room Air 10/29/22 19:45 38 129/77 (97) 92 Room Air 10/29/22 19:30 13 131/89 (102) 96 Room Air 10/29/22 19:15 79 13 137/100 (117) 92 Room Air 10/29/22 19:07 Room Air 10/29/22 19:00 89 10/29/22 19:00 50 130/106 (117) 95 Room Air 10/29/22 18:00 83 31 125/110 (115) 96 Room Air 10/29/22 17:00 62 20 151/105 (120) 97 Room Air 10/29/22 16:00 72 32 130/105 (113) 97 Room Air 10/29/22 16:00 36.3 10/29/22 16:00 91 Room Air 10/29/22 15:00 78 32 113/99 (104) 93 Room Air 10/29/22 14:00 66 13 113/81 (92) 95 Room Air 10/29/22 13:00 77 30 127/90 (102) 96 Room Air 10/29/22 12:43 63 10/29/22 12:00 91 Room Air 10/29/22 12:00 65 20 97/85 (89) 90 Room Air 10/29/22 12:00 36.2 10/29/22 11:00 74 9 124/103 (110) 97 Room Air I & O 10/30/22 07:00 Intake Total 2700 ml Output Total 5475 ml Balance -2775 ml Height & Weight Height: '" Weight: lbs. oz. kg; 30.02 BMI Method: General Appearance: No Apparent Distress, WD/WN HEENT: PERRL/EOMI, TMs Normal, Normal ENT Inspection, Pharynx Normal, Moist Mucous Membranes Neck: Normal Inspection Respiratory: Lungs Clear, Normal Breath Sounds; No Respiratory Distress Cardiovascular: Regular Rate, Rhythm, No Murmur, Normal Peripheral Pulses Capillary Refill: Less Than 3 Seconds Extremity: Normal Capillary Refill, Normal Inspection, Normal Range of Motion, Non Tender, No Calf Tenderness, No Pedal Edema Neurologic/Psychiatric: Alert, Oriented x3, No Motor/Sensory Deficits, Normal Mood/Affect Skin: Normal Color, Warm/Dry Lymphatic: No Adenopathy Results Lab Laboratory Tests 10/29/22 03:33 10/30/22 03:50 Assessment/Plan Assessment/Plan 1 SHANKAR SMITH MD Oct 30, 2022 10:38
--- NOTE | 2022-10-30 11:29 | Discharge Summary ---
Diagnosis/Chief Complaint Date of Admission Oct 28, 2022 at 12:40 Date of Discharge Discharge Date: Oct 30, 2022 Discharge Diagnosis -Atrial fibrillation with RVR New onset > Cardizem drip started yesterday but was still slightly tachycardic > Cardiology added digoxin and metoprolol > HR under control at 78 this morning > had 2D echo yesterday that showed EF of 40-45% with dilated LV, biatrial e nlargement, pulmonary HTN with PA pressure 45-50 mmHg (likely hx of sleep apnea) > WILNER showed no signs of thrombus formation > cardioversion x2 unsuccessful > lopressor given, amiodarone drip planned > Continue anticoagulation > Consider possibly d/c cardizem drip due to normalized HR and hypotension Presumed INESSA Discharge Summary Discharge Physical Examination Allergies: Coded Allergies: No Known Drug Allergies (Unverified , 02/16/15) Vitals & I&Os Vital Signs Date Time Temp Pulse Resp B/P (MAP) Pulse Ox O2 Delivery O2 Flow Rate FiO2 10/30/22 11:00 73 17 125/96 (106) 95 Room Air 10/30/22 04:00 36.4 10/28/22 21:54 21 Hospital Course Was the Problem List Reviewed?: Yes Miguel Ángel Whiting is a 47 year old male with no significant past medical history. He had been having dyspnea for the past week and was initially worked up by Dr. Norton. Over this past weekend he went to [place] to get labs and an EKG done and was found to be in atrial fibrillation with RVR and he was transferred to [facility] [place] and admitted to the ICU. He was started on a Cardizem drip but was still tachycardic and was additionally placed on Digoxin and Metoprolol. His heart rate has since been controlled. He had a 2D echo performed on 10/28 that was significant for CHF with an EF of 40-45%. biatrial enlargement, and pulmonary HTN. Cardiology started him on Entresto and Jardiance. He had a pelaez sesophaeal echo performed on 10/29 prior to cardioversion that showed no thrombus formation. Subsequent cardioversion on 10/29 was unsuccessful and he was put on an Amiodarone drip. Another cardioversion was attempted on 10/30 that was also unsuccessful. Cardiology planned to maintain on oral Amiodarone and Cardizem as well as Metoprolol, Entresto, Jardiance, and start on 5mg Eliquis following cardioversion due to CHADVASC score of 2. On day of discharge 10/30 his heart rate was 74 but was still in atrial fibrillation but denies any associated complaints of chest pain, dyspnea, palpitations. Cardiology wants to follow up with him in 1 month for third cardioversion attempt after full load of Amiodarone SUSANA RIDLEY Labs (last 24 hrs) Laboratory Tests 10/29/22 03:33: White Blood Count 7.4, Red Blood Count 4.43, Hemoglobin 13.2L, Hematocrit 41, Mean Corpuscular Volume 91, Mean Corpuscular Hemoglobin 30, Mean Corpuscular Hemoglobin Concent 33, Red Cell Distribution Width 13.4, Platelet Count 196, Mean Platelet Volume 10.3, Immature Granulocyte % (Auto) 0, Neutrophils (%) (Auto) 61, Lymphocytes (%) (Auto) 28, Monocytes (%) (Auto) 10, Eosinophils (%) (Auto) 1, Basophils (%) (Auto) 1, Neutrophils # (Auto) 4.5, Lymphocytes # (Auto) 2.0, Monocytes # (Auto) 0.7, Eosinophils # (Auto) 0.1, Basophils # (Auto) 0.0, Immature Granulocyte # (Auto) 0.0, Sodium Level 141, Potassium Level 4.2, Chloride Level 108H, Carbon Dioxide Level 25, Anion Gap 8, Blood Urea Nitrogen 15, Creatinine 0.95, Estimat Glomerular Filtration Rate 100, BUN/Creatinine Ratio 16, Glucose Level 96, Calcium Level 8.4L, Corrected Calcium 8.7, Phosphorus Level 3.6, Magnesium Level 1.9, Total Bilirubin 0.7, Aspartate Amino Transf (AST/SGOT) 22, Alanine Aminotransferase (ALT/SGPT) 40, Alkaline Phosphatase 61, Total Protein 5.8L, Albumin 3.6, Triglycerides Level 107, Cholesterol Level 148, LDL Cholesterol Direct 114, VLDL Cholesterol 21, HDL Cholesterol 36L, Thyroid Stimulating Hormone (TSH) 0.81 10/30/22 03:50: White Blood Count 8.2, Red Blood Count 4.81, Hemoglobin 14.4, Hematocrit 44, Mean Corpuscular Volume 91, Mean Corpuscular Hemoglobin 30, Mean Corpuscular Hemoglobin Concent 33, Red Cell Distribution Width 13.5, Platelet Count 180, Mean Platelet Volume 10.7, Immature Granulocyte % (Auto) 0, Neutrophils (%) (Auto) 64, Lymphocytes (%) (Auto) 24, Monocytes (%) (Auto) 11, Eosinophils (%) (Auto) 1, Basophils (%) (Auto) 1, Neutrophils # (Auto) 5.2, Lymphocytes # (Auto) 2.0, Monocytes # (Auto) 0.9, Eosinophils # (Auto) 0.1, Basophils # (Auto) 0.0, Immature Granulocyte # (Auto) 0.0, Sodium Level 142, Potassium Level 4.0, Chloride Level 109H, Carbon Dioxide Level 24, Anion Gap 9, Blood Urea Nitrogen 14, Creatinine 1.01, Estimat Glomerular Filtration Rate 93, BUN/Creatinine Ratio 14, Glucose Level 93, Calcium Level 8.7, Corrected Calcium 8.9, Phosphorus Level 3.7, Magnesium Level 2.1, Total Bilirubin 0.7, Aspartate Amino Transf (AST/SGOT) 19, Alanine Aminotransferase (ALT/SGPT) 32, Alkaline Phosphatase 64, Total Protein 6.4, Albumin 3.8 Microbiology 10/28/22 MRSA Screen - Final, Complete MRSA not isolated Pending Labs Microbiology Date/Time Source Procedure Growth Status 10/28/22 12:45 Nasal MRSA Screen - Final MRSA not isolated Complete Laboratory Tests 10/29/22 03:33: White Blood Count 7.4, Red Blood Count 4.43, Hemoglobin 13.2, Hematocrit 41, Mean Corpuscular Volume 91, Mean Corpuscular Hemoglobin 30, Mean Corpuscular Hemoglobin Concent 33, Red Cell Distribution Width 13.4, Platelet Count 196, Mean Platelet Volume 10.3, Immature Granulocyte % (Auto) 0, Neutrophils (%) (Auto) 61, Lymphocytes (%) (Auto) 28, Monocytes (%) (Auto) 10, Eosinophils (%) (Auto) 1, Basophils (%) (Auto) 1, Neutrophils # (Auto) 4.5, Lymphocytes # (Auto) 2.0, Monocytes # (Auto) 0.7, Eosinophils # (Auto) 0.1, Basophils # (Auto) 0.0, I mmature Granulocyte # (Auto) 0.0, Sodium Level 141, Potassium Level 4.2, Chloride Level 108, Carbon Dioxide Level 25, Anion Gap 8, Blood Urea Nitrogen 15, Creatinine 0.95, Estimat Glomerular Filtration Rate 100, BUN/Creatinine Ratio 16, Glucose Level 96, Calcium Level 8.4, Corrected Calcium 8.7, Phosphorus Level 3.6, Magnesium Level 1.9, Total Bilirubin 0.7, Aspartate Amino Transf (AST/SGOT) 22, Alanine Aminotransferase (ALT/SGPT) 40, Alkaline Phosphatase 61, Total Protein 5.8, Albumin 3.6, Triglycerides Level 107, Cholesterol Level 148, LDL Cholesterol Direct 114, VLDL Cholesterol 21, HDL Cholesterol 36, Thyroid Stimulating Hormone (TSH) 0.81 10/30/22 03:50: White Blood Count 8.2, Red Blood Count 4.81, Hemoglobin 14.4, Hematocrit 44, Me an Corpuscular Volume 91, Mean Corpuscular Hemoglobin 30, Mean Corpuscular Hemoglobin Concent 33, Red Cell Distribution Width 13.5, Platelet Count 180, Mean Platelet Volume 10.7, Immature Granulocyte % (Auto) 0, Neutrophils (%) (Auto) 64, Lymphocytes (%) (Auto) 24, Monocytes (%) (Auto) 11, Eosinophils (%) (Auto) 1, Basophils (%) (Auto) 1, Neutrophils # (Auto) 5.2, Lymphocytes # (Auto) 2.0, Monocytes # (Auto) 0.9, Eosinophils # (Auto) 0.1, Basophils # (Auto) 0.0, Immature Granulocyte # (Auto) 0.0, Sodium Level 142, Potassium Level 4.0, Chloride Level 109, Carbon Dioxide Level 24, Anion Gap 9, Blood Urea Nitrogen 14, Creatinine 1.01, Estimat Glomerular Filtration Rate 93, BUN/Creatinine Ratio 14, Glucose Level 93, Calcium Level 8.7, Corrected Calcium 8.9, Phosphorus Level 3.7, Magnesium Level 2.1, Total Bilirubin 0.7, Aspartate Amino Transf (AST/SGOT) 19, Alanine Aminotransferase (ALT/SGPT) 32, Alkaline Phosphatase 64, Total Protein 6.4, Albumin 3.8 Discharge Home Medications: Active Scripts Active Amiodarone HCl 200 Mg Tablet 200 Mg PO UD Take 2 tabs twice daily for 2 weeks then Take one tab twice daily Jardiance (Empagliflozin) 10 Mg Tablet 10 Mg PO DAILY Entresto 24 mg-26 mg Tablet (Sacubitril/Valsartan) 24 Mg-26 Mg Tablet 1 Tab PO BID Diltiazem 24Hr ER (Diltiazem HCl) 120 Mg Cap.er.24h 120 Mg PO DAILY Metoprolol Tartrate 25 Mg Tablet 25 Mg PO BID Eliquis (Apixaban) 5 Mg Tablet 5 Mg PO BID Reported Ventolin Hfa (Albuterol Sulfate) 90 Mcg Hfa.aer.ad 2 Puff INH Q6H PRN Loratadine 10 Mg Tablet 10 Mg PO DAILY Instructions to patient/family Please see electronic discharge instructions given to patient. YODIT CANNON DO Oct 30, 2022 11:29
--- NOTE | 2022-10-30 13:02 | Progress Note ---
SUSANA RIDLEY 10/30/22 1302: Progress Note Miguel Ángel Whiting is a 47 year old male with no significant past medical history. He had been having dyspnea for the past week and was initially worked up by Dr. Norton. Over this past weekend he went to [place] to get labs and an EKG done and was found to be in atrial fibrillation with RVR and he was transferred to [facility] [place] and admitted to the ICU. He was started on a Cardizem drip but was still tachycardic and was additionally placed on Digoxin and Metoprolol. His heart rate has since been controlled. He had a 2D echo performed on 10/28 that was significant for CHF with an EF of 40-45%. biatrial enlargement, and pulmonary HTN. Cardiology started him on Entresto and Jardiance. He had a transesophaeal echo performed on 10/29 prior to cardioversion that showed no thrombus formation. Subsequent cardioversion on 10/29 was unsuccessful and he was put on an Amiodarone drip. Another cardioversion was attempted on 10/30 that was also unsuccessful. Cardiology planned to maintain on oral Amiodarone and Cardizem as well as Metoprolol, Entresto, Jardiance, and start on 5mg Eliquis following cardioversion due to CHADVASC score of 2. On day of discharge 10/30 his heart rate was 74 but was still in atrial fibrillation but denies any associated complaints of chest pain, dyspnea, palpitations. Cardiology wants to follow up with him in 1 month for third cardioversion attempt after full load of Amiodarone LEIDY CANNON DO 10/30/22 2009: Supervisory-Addendum Brief Verification & Attestation Participated in pt care: history, MDM, physical Personally performed: exam, history, MDM, supervision of care Care discussed with: Medical Student Procedures: n/a Results interpretation: Verified all documentation Verification and Attestation of Medical Student E/M Service A medical student performed and documented this service in my presence. I reviewed and verified all information documented by the medical student and made modifications to such information, when appropriate. I personally performed the physical exam and medical decision making. Leidy Cannon, Oct 30, 2022,20:09 SUSANA RIDLEY Oct 30, 2022 13:02 LEIDY CANNON DO Oct 30, 2022 20:09
--- NOTE | 2022-11-04 04:43 | Physician Query Clarification ---
PQ-CHF Specificity Admission Date: Oct 28, 2022 at 12:40 Discharge Date: Oct 30, 2022 at 13:45 The medical record reflects the following clinical scenario: History/Risk Factors: 47 years old male patient admitted for atrial fibrillation underwent cardioversion, chf was documented in medical record. Clinical Findings: acute left ventricular systolic dysfunction, ejection fraction 40 - 45 % per echo. Treatment: Beta sky, Cardizem drip. Question: Can you further specify the acuity &/or type of CHF per the clinical indicators above? Please document a response in the Progress Notes or Discharge Summary. 1. Acuity: Acute, Chronic or Acute on Chronic 2. Type: Systolic, Diastolic or Systolic & Diastolic 3. Unspecified: CHF cannot be further specified regarding type or acuity 4. Other, with explanation of clinical findings 5. Clinically undetermined, no explanation for clinical findings PHYSICIAN RESPONSE Acuity: Acute Type: Systolic In responding to this query, please exercise your independent professional judgment. The purpose of this communication is to more accurately reflect the complexity of your patients condition. The fact that a question is asked does not imply that any particular answer is desired or expected. Thank you for your timely response to this clarification. Requestors name: [ ] Phone # [ ] THIS PHYSICIAN QUERY FORM IS A PERMANENT PART OF THE MEDICAL RECORD LINDSEY CABRERA Nov 04, 2022 04:43 YODIT CANNON DO Nov 04, 2022 05:28
== END 2022-10-30 13:45 | disposition home or self-care (01) | DRG 308 ==
LOC: ICU 12:40
PROVIDERS: ADMIT Internal Medicine; ATTEND Internal Medicine
PROC: 5A2204Z Restoration of Cardiac Rhythm, Single (ICD-10-PCS; principal; 2022-10-29)
PROC: 5A2204Z Restoration of Cardiac Rhythm, Single (ICD-10-PCS; 2022-10-30)
DX: I48.91 Unspecified atrial fibrillation (principal); I50.21 Acute systolic (congestive) heart failure; Z79.01 Long term (current) use of anticoagulants; I27.20 Pulmonary hypertension, unspecified; G47.33 Obstructive sleep apnea (adult) (pediatric); I11.0 Hypertensive heart disease with heart failure
CPT/HCPCS: 36415; 71045; 80053; 80061; 83735; 84100; 84443; 85025; 85027; 87081; 93005; 93306

== ENCOUNTER 2022-11-20 09:26 | Day surgery (SDC) | payer BC ==
[~2022-11-20] VITALS: Ht 188 cm; Wt 99.6 kg
[~2022-11-20 09:26] MED LIST: ALBU18HF2 INH; AMIO200T65 PO; APIX5TAB PO; DILT-27 PO; EMPA10TA PO; LORA10TA7 PO; METO-333 PO; SACU1TAB2 PO
[2022-11-20] MEDS ORDERED: LIDOCAINE 2% VISCOUS 15 ML UDC ONE (09:35)
[2022-11-20] MEDS ORDERED: NS IV 1000 ML 1,000 ML ONE (09:35)
[2022-11-20] MEDS ORDERED: NS IV 1000 ML 1,000 ML IV SCH (09:45)
[2022-11-20] MEDS ORDERED: LIDOCAINE 2% VISCOUS 15 ML UDC PO ONE (09:45)
[2022-11-20] MEDS ORDERED: proPOfol INJECTION 200 MG/20 ML VIAL IV ONE (09:55)
[2022-11-20] MEDS ORDERED: METO-333 PO (10:05)
[2022-11-20] MEDS ORDERED: APIX5TAB PO (10:05)
[2022-11-20] MEDS ORDERED: SACU1TAB2 PO (10:05)
[2022-11-20] MEDS ORDERED: EMPA10TA PO (10:05)
[2022-11-20] MEDS ORDERED: DILT120C88 PO (10:05)
[2022-11-20] MEDS ORDERED: AMIO200T65 PO (10:05)
[2022-11-20 11:43] VITALS: BP 130/86
--- NOTE | 2022-11-20 11:43 | Cardiac Procedure Note-CS/ASA ---
Pre-Procedure Note Pre-Op Procedure Note Date of Available H&P: Nov 12, 2022 Date H&P Reviewed: Nov 20, 2022 Time H&P Reviewed: 11:43 History & Physical: H&P Reviewed, Patient Examed, No changes noted Pre-Operative Diagnosis: Atrial fibrillation Moderate Sedation PreProcedure Time 11:43 ASA Score 3 Airway Lungs Heart ASA score ASA 1: a normal healthy patient ASA 2: a patient with a mild systemic disease (mid diabetes, controlled hypertension, obesity ASA 3: a patient with a severe systemic disease that limits activity (angina, COPD, prior Myocardial infarction) ASA 4: a patient with an incapacitating disease that is a constant threat to life (CHF, renal failure) ASA 5: a moribund patient not expected to survive 24 hrs. (ruptured aneurysm) ASA 6: a declared brain- patient whose organs are being harvested. For emergent operations, add the letter E after the classification Mallampati Classification Grade 3 Sedation Plan Analgesia, Amnesia, Plan communicated to team members, Discussed options with patient/fam, Discussed risks with patient/fam The patient is an appropriate candidate to undergo the planned procedure, sedation, and anesthesia. The patient immediately re-assessed prior to indication. DARCIE ANGELO MD Nov 20, 2022 11:43
--- NOTE | 2022-11-20 11:48 | Cardioversion ---
Cardioversion PROCEDURE PHYSICIAN: Darcie Love DATE OF PROCEDURE: 11/20/22 DIRECT EXTERNAL ELECTRICAL CARDIOVERSION: Indications: Atrial Fibrillation with rapid ventricular rate Preoperative diagnoses: Atrial Fibrillation with rapid ventricular rate Postoperative diagnosis: Sinus rhythm, Successful Electrical Cardioversion History: 47-year-old gentleman with atrial fibrillation, persistent, failed multiple attempt for cardioversion, he was loaded with IV amiodarone and attempted cardioversion was done without success then he continued with oral amiodarone loading dose and I scheduled him for another attempt. Anesthesia: By Anesthesia services Complications: None Specimen: None Contrast: 0 Flouroscopy: none Procedure Details: The patient was brought the dental laboratory technology teacher after informed consent was taken, all the risks and complications were explained including the risk of stroke. Electrical cardioversion was carried out with anesthesia support with propofol. 200 joules of synchronized shock was delivered through external patches which promptly restored sinus rhythm. The patient tolerated the procedure well. Conclusions: Successful electrical cardioversion terminating atrial fibrillation Final Diagnosis: Paroxysmal atrial fibrillation Palpitation DARCIE LOVE MD Nov 20, 2022 11:48
[2022-11-20 11:54] VITALS: BP 119/96
--- NOTE | 2022-11-20 11:54 | Anesthesia-General Post-Op ---
MAC Patient Condition Mental Status/LOC: Same as Preop Cardiovascular: Satisfactory Nausea/Vomiting: Absent Respiratory: Satisfactory Pain: Controlled Complications: Absent Post Op Complications Complications None Follow Up Care/Instructions Patient Instructions None needed. Anesthesiology Discharge Order Discharge Order Patient is doing well, no complaints, stable vital signs, no apparent adverse anesthesia problems. No complications reported per nursing. DEVIKA ADEN CRNA Nov 20, 2022 11:54
[2022-11-20 12:04] VITALS: BP 108/76
[2022-11-20 12:20] VITALS: BP 112/79
[2022-11-20 12:31] VITALS: BP 122/87
== END 2022-11-20 12:37 | disposition home or self-care (01) ==
LOC: CATH 09:26
PROVIDERS: ATTEND Internal Medicine Cardiovascular Disease
DX: I48.0 Paroxysmal atrial fibrillation (principal); I48.19 Other persistent atrial fibrillation; I11.0 Hypertensive heart disease with heart failure; I50.21 Acute systolic (congestive) heart failure; I27.20 Pulmonary hypertension, unspecified; I08.1 Rheumatic disorders of both mitral and tricuspid valves; Z79.899 Other long term (current) drug therapy; Z79.01 Long term (current) use of anticoagulants
CPT/HCPCS: 92960; 93005